=== PATIENT | male | born 1965 | race Caucasian/White ===

== ENCOUNTER 2016-03-26 10:15 | Inpatient (IN) | payer MEDICAID ==
[2016-04-01] MEDS ORDERED: ERTApenem(*) 1 GM in NS 0.9% 50 ML* 50 ML IVPB SCH ×2
[2016-04-01] MEDS ORDERED: PROCHLORPERAZINE INJ 5 MG/ML 2 ML VIAL IV PRN (05:55)
[2016-04-01] MEDS ORDERED: Morphine INJ* 4 MG/ML 1 ML CARPUJECT IV PRN (05:55)
[2016-04-01] MEDS ORDERED: fentaNYL* 50 MCG/ML 2 ML VIAL (100 MCG VIAL) IV PRN (05:55)
[2016-04-01] MEDS ORDERED: Famotidine IV* 10 MG/ML 2 ML (20 mg) IV ONE (06:00)
[2016-04-01] MEDS ORDERED: Buffered Lidocaine 1% SYR 3ML* 3 ML/SYR SYRINGE INTRADERM ONE (06:00)
[2016-04-01] MEDS ORDERED: Famotidine IV* 10 MG/ML 2 ML (20 mg) ONE (08:55)
[2016-04-01] MEDS ORDERED: Buffered Lidocaine 1% SYR 3ML* 3 ML/SYR SYRINGE ONE (08:55)
[2016-04-01] MEDS ORDERED: Midazolam* 1 MG/ML 5 ML VIAL (5 MG) ONE (10:28)
[2016-04-01] MEDS ORDERED: fentaNYL* 50 MCG/ML 5 ML VIAL (250 MCG VIAL) ONE (10:28)
[2016-04-01] MEDS ORDERED: KETAMINE HCL* 50 MG/ML 10 ML VIAL ONE (10:28)
[2016-04-01] MEDS ORDERED: Atracurium* 10 MG/ML 10 ML VIAL ONE (10:28)
[2016-04-01] MEDS ORDERED: Bupivacaine 0.5% W/EPI SDV* 30 ML VIAL ONE (12:15)
[2016-04-01] MEDS ORDERED: Neostigmine Methylsulfate* 2 MG/2 ML SYRINGE ONE (13:32)
[2016-04-01] MEDS ORDERED: Glycopyrrolate IV* 0.2 MG/ML 1 ML VIAL ONE (13:32)
[2016-04-01] MEDS ORDERED: EPHEDrine (Pressors)* 50 MG/ML VIAL ONE (13:32)
[2016-04-01] MEDS ORDERED: Dexamethasone IV* 4 MG/ML 1 ML (4 MG) ONE (13:32)
[2016-04-01] MEDS ORDERED: Ondansetron INJ* 2 MG/ML VIAL ONE (13:32)
[2016-04-01] MEDS ORDERED: Propofol* 10 MG/ML 20 ML BTL IV PUSH ONE (13:32)
[2016-04-01] MEDS ORDERED: Lidocaine 2% PF * 5 ML VIAL ONE (13:32)
[2016-04-01] MEDS ORDERED: Morphine INJ* 10 MG/ML 1 ML CARPUJECT ONE ×2 (13:33→16:01)
[2016-04-01] MEDS ORDERED: Ondansetron INJ* 2 MG/ML VIAL IV PRN (17:39)
[2016-04-01] MEDS ORDERED: Acetaminophen TAB* 325 MG PO PRN (17:39)
[2016-04-01] MEDS ORDERED: hydrALAZINE IV* 20 MG/ML VIAL ONE (17:40)
[2016-04-01] MEDS ORDERED: HYDROmorphone PCA* 20 ML PCA SCH (18:00)
[2016-04-01] MEDS ORDERED: hydrALAZINE IV* 20 MG/ML VIAL IV ONE (18:01)
[2016-04-01] MEDS ORDERED: HYDROmorphone PCA* 20 ML ONE (18:32)
--- NOTE | 2016-04-02 08:56 | PN ---
Progress Note - Progress Note SOAP: Subjective: Feeling well this morning has been sleeping since surgery last night has not gotten out of bed yet no flatus or BM has not yet started clear liquids denies f/c, cp, sob, n/v Objective: A&Ox3, NAD, VSS, afebrile Heart: RRR no m/r/g Lungs: poor aeration throughout, ?scant wheezes on R Abd: Soft, non-distended, thin incisions covered with dressings, not removed no drainage on dressings +BS throughout mild tenderness to palpation near old ostomy site no guarding Extr: calves NT to palpation, no erythema or swelling rivera in place Vital Signs Temp 97.6 F 04/02/16 07:35 Pulse 64 04/02/16 07:35 Resp 16 04/02/16 07:35 BP 125/71 04/02/16 07:35 Pulse Ox 96 04/02/16 08:47 Intake & Output 04/01/16 04/02/16 04/02/16 18:59 06:59 18:59 Intake Total 4050 1007 950 Output Total 550 2150 Balance 3500 -1143 950 Weight 165 lb Intake: IV Fluids 4050 907 950 LR 4000 907 950 NS 50ML, Ertopenin 1G 50 Oral 100 Output: Rivera 250 2150 Estimated Blood Loss 300 Assessment/Plan: Pt is a 51 yo M POD#1 S/P laparoscopic- reversal of colostomy who is currently stable and doing well. Con't clear liquids D/C rivera Con't METALWORKER incentive spirometer, ambulate
--- NOTE | 2016-04-02 09:43 | PN ---
Progress Note - Progress Note SOAP: Subjective: Pain in LLQ incision. No N/V. Objective: Vital Signs Temp 97.6 F 04/02/16 07:35 Pulse 64 04/02/16 07:35 Resp 16 04/02/16 09:00 BP 125/71 04/02/16 07:35 Pulse Ox 97 04/02/16 09:00 Intake & Output 04/01/16 04/02/16 04/02/16 18:59 06:59 18:59 Intake Total 4050 1007 950 Output Total 550 2150 Balance 3500 -1143 950 Weight 165 lb Intake: IV Fluids 4050 907 950 LR 4000 907 950 NS 50ML, Ertopenin 1G 50 Oral 100 Output: Rivera 250 2150 Estimated Blood Loss 300 Abd: LLQ incis s\ erythema; bloody drainage, no packing. Assessment: POD#1 s/p lap colostomy reversal. Plan: Add po pain meds. D/c rviera. Cont po clears.
[2016-04-02] MEDS ORDERED: oxyCODONE/Acetamin 5/325 MG* TAB PO PRN (09:45)
[2016-04-02] MEDS: oxyCODONE/Acetamin 5/325 MG* TAB PO PRN ×3 (11:11→20:38)
[2016-04-02] MEDS: Ketorolac INJ* 30 MG/ML 1 ML VIAL IV PRN (15:42)
[2016-04-02] MEDS ORDERED: Calcium Carbonate CHEW TAB* 500 MG (TUMS) PO PRN (16:06)
[2016-04-02] MEDS ORDERED: Calcium Carbonate CHEW TAB* 500 MG (TUMS) ONE (16:17)
[2016-04-02] MEDS: Famotidine IV* 10 MG/ML 2 ML (20 mg) IV SCH (17:07)
--- NOTE | 2016-04-02 17:20 | OP ---
OPERATIVE REPORT: DATE OF OPERATION: 04/01/16 - U 333-01 DATE OF : 67 SURGEON: Fritz Marshall MD. CUSTOMER SERVICE AND SALES CONSULTANT: CHAD Castro ANESTHESIOLOGIST: Dr. Melgar. ANESTHESIA: General endotracheal. PRE-OP DIAGNOSIS: Colostomy, status post Delaney's procedure for perforated diverticulitis. POST-OP DIAGNOSIS: Colostomy, status post Delaney's procedure for perforated diverticulitis. OPERATIVE PROCEDURE: Laparoscopic reversal of colostomy with lysis of adhesions and takedown splenic flexure. ESTIMATED BLOOD LOSS: 150 mL. SPECIMEN: Colostomy. DRAINS: None. COMPLICATIONS: None. COUNTS: The instrument, needle, and sponge counts were correct. DESCRIPTION OF PROCEDURE: The patient was brought to the operating room and placed on the table supine. Sequential compression devices were placed in both lower extremities and general anesthesia was administered. A Nina catheter was placed. The patient was positioned in split leg position on the operating table. The colostomy was oversewn with 0 silk. Digital rectal examination was performed and there was noted to be no stool within the rectal vault. The patient was then prepped and draped in the usual sterile fashion. He received appropriate antibiotics. Time-out was performed. Local anesthetic was infiltrated into the skin and soft tissue prior to making each incision. Entry to the abdomen was through a supraumbilical curvilinear incision using an open technique. After accessing the peritoneal cavity, 5-mm bladeless trocar was placed. Carbon dioxide was insufflated to a pressure of 15 mmHg. The 5-mm trocars were placed in the right lower quadrant under direct visualization and also in the suprapubic midline under direct visualization. Inspection revealed the descending colon heading up out to the colostomy and left lower quadrant. There were a few adhesions to the anterior abdominal wall. There were numerous interloop small bowel adhesions and small bowel was adhesed in the pelvis. This was mobilized using blunt and sharp dissection whilst the patient was in steep Trendelenburg. There was a visible blue Surgipro suture in the pelvis, which had been used to marino the rectal stump. This was grasped and elevated; however, the suture broke and was removed. There was some portion of the staple line visible. The staple line was dissected out using a combination of sharp and blunt dissection. It was difficult to identify the wall of the rectum due to the inflammation and thickened peritoneum overlying the rectum and pelvis. Using scissors dissection and cautery, the peritoneum was scored on the right side of what remained of the sigmoid colon mesentery and this was used to develop plane heading down into the retrorectal space. The line of the dissection continued inferiorly to the anterior reflection. The rectal vault was identified on the right side of the stump and the dissection then proceeded along the posterior aspect of the staple line in order to better define it. There was noted to be inadvertant entry into the rectum and this was initially oversewn with 2-0 silk in [id number] fashion. At this point, it was felt it would be best to avoid further dissection of the rectum and the attention was turned to the colostomy. The colostomy was dissected free from the anterior abdominal wall creating adhesions to the sidewall as well as to the colostomy aperture itself. This was done using a combination of sharp and blunt dissection. Dissection was performed along the lateral aspect extending the dissection upwards to and including the splenic flexure, again using the LigaSure. After completing this mobilization, attention was turned to the external colostomy, which was dissected first by creating an elliptical incision around it with scalpel and deepening this with cautery and then using a combination of sharp and blunt dissection and cautery, the colostomy was dissected free from the subcutaneous tissues. The fascial edge was identified and the colostomy was dissected free from this. Once the colostomy was entirely freed, it was elevated out of the wound and divided using a cautery. The dissected portion was submitted to pathology. Wolcott clamps were then placed on the edges of the proximal colon. This was sized for a 28 mm EEA stapler. The anvil was placed within the lumen and then a 2-0 Surgipro was used in a running whipstitch to pursestring the bowel around the anvil. The colon with the anvil was returned to the abdominal cavity and then the wound was closed transversely with #1 Polysorb using interrupted [id number] fashion. Pneumoperitoneum was then re- established and after assuring hemostasis, the rectum was entered with the sizers. However, upon placing the sizers into the rectum, there was noted to be mucus leaking from the end of the rectal stump indicating that there was still an opening in the rectal stump. In order to address this then, the proximal rectum had to be dissected out. An additional 5 mm trocar was placed through the LLQ wound. The staple line was elevated and it was determined that the staple line extended further towards the left side of the patient. Again there is thickened peritoneum overlying this area and this was opened using combination of blunt and sharp dissection. The thickened peritoneum also extended over the anterior portion of the rectum and this was divided as well. The entire staple line could now be well visualized and it was decided that this proximal portion of the rectum would be transected. A 12-mm trocar was placed into the right lower quadrant replacing the previous 5-mm trocar at this site. After elevating the rectal stump staple line, an EndoGIA stapler with purple cartridge was used to transect the proximal rectal stump, removing the area where the injury had occurred. This was removed using endoscopic retrieval bag. Next, the colorectal anastomosis was performed using the EEA stapler, passing this transrectally and the anastomosis was performed anterior to the staple line. The anastomosis was tested with the bubble test and no leak was identified. Lastly, there was additional mobilization of the gastrocolic ligament in order to assure that there is no tension on the anastomosis. After assuring hemostasis, the omentum was positioned into the pelvis and the ports were all removed under direct visualization and carbon dioxide was released. The right lower quadrant 12- mm port site was closed with 0 Polysorb in interrupted fashion to approximate the muscle and fascia in one layer. The skin incisions were all closed with scott except for the colostomy site, which was only proximally closed with scott and then packed. Dressings were applied to the wound. The patient tolerated this procedure well. He was extubated and he was transferred to Recovery in stable condition. [id number]/[facility] #: [id number] [facility] HOSPITALRosanna
[2016-04-03] MEDS: oxyCODONE/Acetamin 5/325 MG* TAB PO PRN ×5 (03:33→22:05)
[2016-04-03] MEDS: Famotidine IV* 10 MG/ML 2 ML (20 mg) IV SCH (07:57)
[2016-04-03] MEDS: Ketorolac INJ* 30 MG/ML 1 ML VIAL IV PRN (10:28)
--- NOTE | 2016-04-03 11:30 | PN ---
Progress Note - Progress Note SOAP: Subjective: Feeling well this morning ambulated this am + flatus tolerating clear liquids had an episode of reflux yesterday relieved with tums denies f/c, cp, sob, n/v Objective: A&Ox3, NAD, VSS, afebrile Heart: RRR no m/r/g Lungs: poor aeration throughout, improved from exam yesterday Abd: Soft, non-distended, thin incisions covered with dressings- removed and colostomy site probed, sm amt serosang drainage +BS throughout mild tenderness to palpation near old ostomy site, in low pelvis no guarding Extr: calves NT to palpation, no erythema or swelling Vital Signs Temp 97.4 F 04/03/16 07:30 Pulse 84 04/03/16 07:30 Resp 20 04/03/16 08:00 BP 148/88 04/03/16 07:30 Pulse Ox 94 04/03/16 08:44 Intake & Output 04/02/16 04/03/16 04/03/16 18:59 06:59 18:59 Intake Total 2184 3244 Output Total 925 1425 525 Balance 1259 1819 -525 Intake: IV Fluids 1834 1944 LR 1834 1944 IVPB 500 LR 500 Oral 350 800 Output: Urine 500 1425 525 Nina 425 Assessment/Plan: Pt is a 51 yo M POD#2 S/P laparoscopic- reversal of colostomy who is currently stable and doing well. 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
[2016-04-04] MEDS: oxyCODONE/Acetamin 5/325 MG* TAB PO PRN ×3 (06:32→21:28)
[2016-04-04] MEDS: Famotidine IV* 10 MG/ML 2 ML (20 mg) IV SCH (08:07)
--- NOTE | 2016-04-04 10:00 | PN ---
Progress Note - Progress Note SOAP: Subjective: Feeling well this morning ambulated this am + flatus, no BM tolerating full liquids, was hungry this morning denies f/c, cp, sob, n/v Objective: A&Ox3, NAD, VSS, afebrile Heart: RRR no m/r/g Lungs: CTA shiva no w/r/r Abd: Soft, mildly distended, thin incisions covered with dressings- removed and colostomy site probed, sm amt serosang drainage ++BS throughout mild tenderness to palpation near old ostomy site, in low pelvis no guarding Extr: calves NT to palpation, no erythema or swelling Vital Signs Temp 97.8 F 04/04/16 07:46 Pulse 55 04/04/16 07:46 Resp 14 04/04/16 08:00 BP 128/74 04/04/16 07:46 Pulse Ox 94 04/04/16 08:00 Intake & Output 04/03/16 04/04/16 04/04/16 18:59 06:59 18:59 Intake Total 1885 700 700 Output Total 525 900 Balance 1360 -200 700 Intake: IVPB 950 LR 950 Oral 935 700 700 Output: Urine 525 900 Other: # Bowel Movements 0 Assessment/Plan: Pt is a 51 yo M POD#3 S/P laparoscopic- reversal of colostomy who is currently stable and doing well. Adv diet to low residue- discussed slow advancement encouraged toradol use await improved GI fxn incentive spirometer, ambulate Poss D/C 04/05 or 04/06, rx sent, appt scheduled
[2016-04-04] MEDS: Ketorolac INJ* 30 MG/ML 1 ML VIAL IV PRN (13:28)
[2016-04-05] MEDS: oxyCODONE/Acetamin 5/325 MG* TAB PO PRN ×2 (03:40→08:27)
[2016-04-05] MEDS: Famotidine IV* 10 MG/ML 2 ML (20 mg) IV SCH (08:27)
--- NOTE | 2016-04-05 10:38 | PN ---
Progress Note - Progress Note SOAP: Subjective: C/o pain in RLQ incision. No N/V. Flatus but no BM. Taking po well. Objective: Vital Signs Temp 98.0 F 04/05/16 07:23 Pulse 50 04/05/16 07:23 Resp 18 04/05/16 08:27 BP 129/80 04/05/16 07:23 Pulse Ox 97 04/05/16 08:00 Intake & Output 04/04/16 04/05/16 04/05/16 18:59 06:59 18:59 Intake Total 1340 1660 920 Output Total 350 1450 700 Balance 990 210 220 Intake: IV Fluids 0 LR 0 Oral 1340 1660 920 Output: Urine 350 1450 700 Other: # Bowel Movements 0 NAD Abd: +BS, softly distended, tender at incisions. LLQ incision with scant serous d/c, no erythema. Assessment: POD#4 s/p lap revsl of colostomy. Stable. Plan: Cont po. Add stool softener. Shower daily. Will likely discharge in AM.
[2016-04-05] MEDS: Docusate CAP* 100 MG PO SCH ×2 (14:35→19:17)
[2016-04-06] MEDS: Famotidine IV* 10 MG/ML 2 ML (20 mg) IV SCH (07:29)
[2016-04-06 07:30] VITALS: BP 141/84
[2016-04-06] MEDS: Docusate CAP* 100 MG PO SCH (08:31)
--- NOTE | 2016-04-06 09:48 | PN ---
Progress Note - Progress Note SOAP: DISCHARGE NOTE Subjective: Had BM. Justine po well. Off narcotics. Objective: Vital Signs Temp 97.5 F 04/06/16 07:16 Pulse 62 04/06/16 07:16 Resp 16 04/06/16 08:20 BP 141/84 04/06/16 07:16 Pulse Ox 97 04/06/16 08:20 Intake & Output 04/05/16 04/06/16 04/06/16 18:59 06:59 18:59 Intake Total 1640 410 Output Total 1200 2275 Balance 440 -1865 Intake: Oral 1640 410 Output: Urine 1200 2275 Other: # Bowel Movements 1 Estimated Stool Amount Small NAD Abd: incis c/d/i; no erythema; soft, ND, min tender. Assessment: POD#5 s/p ;ap revsl colostomy. Ready for d/c home. Plan: D/c home. RTO Thurs/fri for staple removal.
--- NOTE | 2016-05-16 05:27 | DS ---
DISCHARGE SUMMARY: DATE OF ADMISSION: 04/01/16 DATE OF DISCHARGE: 04/06/16 DISCHARGE DIAGNOSES: Diverticulitis of large intestine with perforation and additional diagnoses colostomy status. PROCEDURES: Laparoscopic reversal of colostomy by Dr. Marshall on 04/01/16. HOSPITAL COURSE: This is a 51-year-old gentleman who had undergone a prior Delaney procedure for perforated diverticulitis 3 months prior. He presented for a colostomy reversal and was seen and evaluated in the [facility] office and felt to be an appropriate candidate for laparoscopic reversal of colostomy. The patient was admitted to [facility] on 04/01/16. He underwent an uneventful surgery. Please look for the operative report. Postoperatively, the patient did well, progressed without incident, and was tolerating regular diet, was afebrile, and passing flatus by 04/05/16. He had not had a bowel movement at that point and he was started on a stool softener and subsequently, did have a bowel movement and was felt to be stable for discharge on 04/06/16. The patient at that point had been off all narcotics and was felt to be stable for discharge home. He was discharged with instructions from the [facility] office. He had no laboratory tests pending. He was asked to follow up with [facility] office the week following. [id number]/[facility] #: [id number] RICKIE
== END 2016-04-06 11:15 | disposition home or self-care (01) | DRG 221 ==
LOC: AA 04-01 09:47 → SSU 04-01 20:30
PROVIDERS: ADMIT Surgery; ATTEND Surgery
PROC: 0DBP4ZZ Excision of Rectum, Percutaneous Endoscopic Approach (ICD-10-PCS; 2016-04-01)
PROC: 0DN80ZZ Release Small Intestine, Open Approach (ICD-10-PCS; 2016-04-01)
PROC: 0DN84ZZ Release Small Intestine, Percutaneous Endoscopic Approach (ICD-10-PCS; 2016-04-01)
PROC: 0DBM4ZZ Excision of Descending Colon, Percutaneous Endoscopic Approach (ICD-10-PCS; principal; 2016-04-01 11:30)
DX: Z43.3 Encounter for attention to colostomy (principal); K91.81 Other intraoperative complications of digestive system; S36.60XA Unspecified injury of rectum, initial encounter; Z80.0 Family history of malignant neoplasm of digestive organs; Z82.49 Family history of ischemic heart disease and other diseases of the circulatory system; K66.0 Peritoneal adhesions (postprocedural) (postinfection); Y83.2 Surgical operation with anastomosis, bypass or graft as the cause of abnormal reaction of the patient, or of later complication, without mention of misadventure at the time of the procedure
CPT/HCPCS: 88304; A9270-GY; J0360; J1100; J1335; J1885; J2250; J2270; J2405; J2704; J3010